=== PATIENT | male | born 1965 | race Two or more races ===

== ENCOUNTER 2021-08-19 01:42 | Inpatient (IN) | payer MEDICAID, OTHER ==
[2021-08-19] VITALS (11 sets, daily range): BP systolic 86–96; BP diastolic 44–64
[~2021-08-19] VITALS: Ht 182.9 cm; Wt 86.2 kg
[2021-08-19] MEDS ORDERED: OCTREOTIDE 100 MCG/ML VIAL ONE (02:08)
[2021-08-19] MEDS ORDERED: PANTOPRAZOLE 40 MG VIAL ONE ×2 (02:08→09:02)
[2021-08-19] MEDS ORDERED: OCTREOTIDE 50 MCG/ML AMPUL IV ONE (02:30)
[2021-08-19] MEDS ORDERED: PANTOPRAZOLE 40 MG VIAL IV ONE (02:30)
[2021-08-19] MEDS ORDERED: IV NS 0.9% 1,000 ML BAG IV ONE (02:30)
[2021-08-19] MEDS ORDERED: IOHEXOL-300 100 ML VIAL IV ONE (02:31)
[2021-08-19] MEDS ORDERED: CT SWABBABLE VALVE TRANS SET 1 EA INFUS.SET MC ONE (02:32)
[2021-08-19] MEDS ORDERED: IV NS 0.9% 250 ML IV ONE (02:32)
[2021-08-19] MEDS ORDERED: POTA20TA83 PO (02:46)
[2021-08-19] MEDS ORDERED: ASCO500C18 PO (02:46)
[2021-08-19] MEDS ORDERED: FOLI5VIA2 PO (02:46)
[2021-08-19] MEDS ORDERED: PANT40TA49 PO (02:46)
[2021-08-19] MEDS ORDERED: SUCR1TAB PO (02:46)
[2021-08-19] MEDS ORDERED: MAGN400T8 PO (02:46)
[2021-08-19] MEDS ORDERED: FERR325T24 PO (02:46)
[2021-08-19] MEDS ORDERED: FURO-144 PO (02:46)
[2021-08-19] MEDS ORDERED: SPIR50TA PO (02:46)
[2021-08-19 03:19] LABS: BASOPHILS # (AUTO) 0.1 K/uL (0.0-0.2); BASOPHILS % (AUTO) 0.7 % (0.0-2.0); EOSINOPHILS % (AUTO) 0.9 % (0.0-6.0); LYMPHOCYTES # (AUTO) 0.7 K/uL (0.8-4.8); LYMPHOCYTES % (AUTO) 9.7 % (20.0-44.0); MEAN CORPUSCULAR HGB CONC 34 g/dl (31.0-36.0); MEAN CORPUSCULAR VOLUME 90 fL (80-96); MONOCYTES # (AUTO) 0.9 K/uL (0.1-1.30); MONOCYTES % (AUTO) 11.8 % (2.0-12.0); NEUTROPHILS # (AUTO) 5.6 K/uL (1.8-8.9); NEUTROPHILS % (AUTO) 76.9 % (43.0-81.0); PLATELET COUNT (AUTO) 140 K/uL (150-450); RED BLOOD CELL COUNT(AUTO) 2.12 MIL/uL (4.5-6.0); WHITE BLOOD COUNT (AUTO) 7.3 K/uL (4.3-11.0)
[2021-08-19 03:36] LABS: CALCIUM, SERUM 7.7 mg/dL (8.5-10.1); CARBON DIOXIDE 26 mmol/L (21-32); CHLORIDE 105 mmol/L (98-107); CREATININE 1.2 mg/dL (0.6-1.3); GLUCOSE 132 mg/dL (74-106); POTASSIUM 3.5 mmol/L (3.5-5.1); SODIUM SERUM 139 mmol/L (136-145); UREA NITROGEN, BLOOD 23 mg/dL (7-18)
[2021-08-19 03:39] LABS: HEMATOCRIT 19 % (39-51); HEMOGLOBIN 6.5 g/dL (13.5-17.5)
[2021-08-19 03:45] LABS: ALANINE AMINOTRANSFERASE 10 U/L (12-78); ALBUMIN 2.3 g/dL (3.4-5.0); ALKALINE PHOSPHATASE 63 U/L (46-116); ASPARTATE AMINOTRANSFERASE 23 U/L (15-37); BILIRUBIN,DIRECT 0.7 mg/dL (0.0-0.2); BILIRUBIN,TOTAL 1.3 mg/dL (0.2-1.0); LIPASE 213 U/L (73-393); TOTAL PROTEIN, SERUM 5.9 g/dL (6.4-8.2)
[2021-08-19 03:47] LABS: BAND % (MANUAL) 2 % (0.0-5.0); EOSINOPHILS % (MANUAL) 1 % (0-4); LYMPHOCYTES % (MANUAL) 12 % (16-48); MONOCYTES % (MANUAL) 8 % (0-11.0); NEUTROPHILS % (MANUAL) 85 (42-76)
[2021-08-19 04:37] LABS: BILIRUBIN,URINE NEGATIVE (NEGATIVE); COLOR,URINE YELLOW (YELLOW); LEUKOCYTE ESTERASE ,URINE NEGATIVE (NEGATIVE); NITRITE, URINE NEGATIVE (NEGATIVE); PROTEIN,URINE NEGATIVE (NEGATIVE); UGLUCOSE NEGATIVE (NEGATIVE)
[2021-08-19] MEDS ORDERED: ZOLPIDEM TARTRATE 5 MG TABLET PO PRN (05:30)
[2021-08-19] MEDS ORDERED: MAGNESIUM HYDROXIDE 30 ML UDC PO PRN (05:30)
[2021-08-19] MEDS ORDERED: ACETAMINOPHEN 325 MG TABLET PO PRN (05:30)
[2021-08-19] MEDS ORDERED: MAG HYDROX/AL HYDROX/SIMETH 30 ML UDC PO PRN (05:30)
[2021-08-19] MEDS ORDERED: ONDANSETRON HCL/PF 4 MG/2 ML VIAL IVP PRN (05:30)
[2021-08-19] MEDS ORDERED: Z GUARD REMEDY 4 OZ OINT TP PRN (05:30)
[2021-08-19] MEDS ORDERED: OCTREOTIDE 500 MCG in IV NS 0.9% 99 ML IV PRN (05:30)
[2021-08-19] MEDS ORDERED: CEFTRIAXONE 1GM BAG (ER ONLY) 50 ML IV ONE (06:19)
[2021-08-19] MEDS: IV NS 0.9% 1,000 ML IV PRN (06:40)
[2021-08-19] MEDS: CEFTRIAXONE 1 G in IV D5W 50 ML IV SCH (06:40)
[2021-08-19 06:59] LABS: HEMOGLOBIN 6.1 g/dL (13.5-17.5)
[2021-08-19] MEDS ORDERED: SPIRONOLACTONE 50 MG TABLET PO SCH (09:00)
[2021-08-19] MEDS ORDERED: PANTOPRAZOLE 40 MG VIAL IV SCH (09:00)
[2021-08-19] MEDS ORDERED: FERROUS SULFATE (325 MG) 325 MG/TAB TABLET ONE (09:02)
[2021-08-19] MEDS ORDERED: FUROSEMIDE 40 MG TABLET ONE (09:03)
[2021-08-19] MEDS ORDERED: MAGNESIUM OXIDE 400 MG TABLET ONE (09:03)
[2021-08-19] MEDS ORDERED: ASCORBIC ACID 500 MG TABLET ONE (09:03)
[2021-08-19] MEDS ORDERED: POTASSIUM CHLORIDE 20 MEQ TAB.PRT.SR PO ONE (09:04)
[2021-08-19] MEDS ORDERED: SUCRALFATE 1 G TABLET ONE (09:04)
[2021-08-19] MEDS ORDERED: SPIRONOLACTONE 25 MG TABLET ONE (09:04)
[2021-08-19] MEDS: SUCRALFATE 1 G TABLET PO SCH ×4 (09:14→20:17)
[2021-08-19] MEDS: POTASSIUM CHLORIDE 20 MEQ TAB.PRT.SR PO SCH (09:14)
[2021-08-19] MEDS: MAGNESIUM OXIDE 400 MG TABLET PO SCH ×2 (09:14→19:18)
[2021-08-19] MEDS: FERROUS SULFATE (325 MG) 325 MG/TAB TABLET PO SCH ×2 (09:14→19:18)
[2021-08-19] MEDS: ASCORBIC ACID 500 MG TABLET PO SCH (09:14)
[2021-08-19] MEDS: FUROSEMIDE 40 MG TABLET PO SCH (09:14)
[2021-08-19] MEDS ORDERED: ANESTHESIA TRAY IN PYXIS 1 EA TRAY MC ONE (11:21)
[2021-08-19] MEDS ORDERED: MIDAZOLAM HCL 2 MG/2ML VIAL ONE (17:52)
[2021-08-19] MEDS: PANTOPRAZOLE 40 MG VIAL IV SCH (20:07)
[2021-08-20] VITALS (12 sets, daily range): BP systolic 89–115; BP diastolic 49–70
[2021-08-20 00:48] LABS: HEMOGLOBIN 6.4 g/dL (13.5-17.5)
[2021-08-20] MEDS: CEFTRIAXONE 1 G in IV D5W 50 ML IV SCH (05:38)
[2021-08-20 06:18] LABS: ALBUMIN 2.5 g/dL (3.4-5.0); BILIRUBIN,TOTAL 1.6 mg/dL (0.2-1.0); CREATININE 1.2 mg/dL (0.6-1.3); MAGNESIUM 2.1 mg/dL (1.8-2.4); PHOSPHORUS 3.6 mg/dL (2.5-4.9); POTASSIUM 3.6 mmol/L (3.5-5.1); TOTAL PROTEIN, SERUM 6.1 g/dL (6.4-8.2)
[2021-08-20 06:19] LABS: BASOPHILS % (AUTO) 1.3 % (0.0-2.0); EOSINOPHILS % (AUTO) 3.4 % (0.0-6.0); LYMPHOCYTES # (AUTO) 1.2 K/uL (0.8-4.8); MEAN CORPUSCULAR HGB CONC 35 g/dl (31.0-36.0); MEAN CORPUSCULAR VOLUME 92 fL (80-96); MONOCYTES # (AUTO) 0.3 K/uL (0.1-1.30); MONOCYTES % (AUTO) 8.5 % (2.0-12.0); NEUTROPHILS % (AUTO) 54.8 % (43.0-81.0); PLATELET COUNT (AUTO) 131 K/uL (150-450); WHITE BLOOD COUNT (AUTO) 3.6 K/uL (4.3-11.0)
[2021-08-20 06:35] LABS: HEMATOCRIT 20 % (39-51)
[2021-08-20] MEDS: OCTREOTIDE 1,250 MCG in IV NS 0.9% 247.5 ML IV PRN ×2 (07:09→15:34)
[2021-08-20] MEDS: PANTOPRAZOLE 40 MG VIAL IV SCH ×2 (09:08→21:04)
[2021-08-20] MEDS: FERROUS SULFATE (325 MG) 325 MG/TAB TABLET PO SCH ×2 (09:08→16:59)
[2021-08-20] MEDS: POTASSIUM CHLORIDE 20 MEQ TAB.PRT.SR PO SCH (09:09)
[2021-08-20] MEDS: ASCORBIC ACID 500 MG TABLET PO SCH (09:09)
[2021-08-20] MEDS: SPIRONOLACTONE 25 MG TABLET PO SCH (09:09)
[2021-08-20] MEDS: FUROSEMIDE 40 MG TABLET PO SCH (09:09)
[2021-08-20] MEDS: SUCRALFATE 1 G TABLET PO SCH ×4 (09:09→21:04)
[2021-08-20] MEDS: MAGNESIUM OXIDE 400 MG TABLET PO SCH ×2 (09:09→16:59)
[2021-08-20] MEDS ORDERED: diphenhydrAMINE HCL ELIX 25 MG/10 ML UDC PO PRN (12:00)
[2021-08-20] MEDS: IV NS 0.9% 1,000 ML IV PRN (15:20)
[2021-08-21] VITALS: BP 111/63
[2021-08-21 00:17] LABS: HEMOGLOBIN 7.9 g/dL (13.5-17.5)
[2021-08-21 04:00] VITALS: BP 93/50
[2021-08-21] MEDS: IV NS 0.9% 1,000 ML IV PRN (04:31)
[2021-08-21] MEDS: CEFTRIAXONE 1 G in IV D5W 50 ML IV SCH (05:18)
[2021-08-21 06:47] LABS: BASOPHILS % (AUTO) 1.3 % (0.0-2.0); EOSINOPHILS % (AUTO) 4.8 % (0.0-6.0); HEMATOCRIT 22 % (39-51); HEMOGLOBIN 7.5 g/dL (13.5-17.5); LYMPHOCYTES % (AUTO) 29.1 % (20.0-44.0); MEAN CORPUSCULAR HGB CONC 34 g/dl (31.0-36.0); MEAN CORPUSCULAR VOLUME 92 fL (80-96); MONOCYTES # (AUTO) 0.3 K/uL (0.1-1.30); MONOCYTES % (AUTO) 7.6 % (2.0-12.0); NEUTROPHILS % (AUTO) 57.2 % (43.0-81.0); PLATELET COUNT (AUTO) 140 K/uL (150-450); RED BLOOD CELL COUNT(AUTO) 2.38 MIL/uL (4.5-6.0); WHITE BLOOD COUNT (AUTO) 3.5 K/uL (4.3-11.0)
[2021-08-21 06:50] LABS: CALCIUM, SERUM 8.3 mg/dL (8.5-10.1); PHOSPHORUS 4.3 mg/dL (2.5-4.9); POTASSIUM 3.6 mmol/L (3.5-5.1)
[2021-08-21 08:00] VITALS: BP 114/47
[2021-08-21] MEDS: MAGNESIUM OXIDE 400 MG TABLET PO SCH (08:44)
[2021-08-21] MEDS: SUCRALFATE 1 G TABLET PO SCH ×2 (08:44→12:06)
[2021-08-21] MEDS: POTASSIUM CHLORIDE 20 MEQ TAB.PRT.SR PO SCH (08:44)
[2021-08-21] MEDS: FUROSEMIDE 40 MG TABLET PO SCH (08:44)
[2021-08-21] MEDS: ASCORBIC ACID 500 MG TABLET PO SCH (08:44)
[2021-08-21] MEDS: PANTOPRAZOLE 40 MG VIAL IV SCH (08:44)
[2021-08-21] MEDS: FERROUS SULFATE (325 MG) 325 MG/TAB TABLET PO SCH (08:44)
[2021-08-21] MEDS: SPIRONOLACTONE 25 MG TABLET PO SCH (08:44)
[2021-08-21 12:00] VITALS: BP 130/78
== END 2021-08-21 15:15 | disposition home or self-care (01) | DRG 810 ==
LOC: ER 01:43 → TRANSITION 05:51 → TELE-TD 10:28 → TELE1 08-20 12:08
PROVIDERS: ADMIT Student in an Organized Health Care Education/Training Program; ATTEND Student in an Organized Health Care Education/Training Program
PROC: 0DJ08ZZ Inspection of Upper Intestinal Tract, Via Natural or Artificial Opening Endoscopic (ICD-10-PCS; principal; 2021-08-19)
PROC: 30233N1 Transfusion of Nonautologous Red Blood Cells into Peripheral Vein, Percutaneous Approach (ICD-10-PCS; 2021-08-19)
PROC: 30233K1 Transfusion of Nonautologous Frozen Plasma into Peripheral Vein, Percutaneous Approach (ICD-10-PCS; 2021-08-19)
DX: K91.840 Postprocedural hemorrhage of a digestive system organ or structure following a digestive system procedure (principal); K22.11 Ulcer of esophagus with bleeding; E44.0 Moderate protein-calorie malnutrition; K74.60 Unspecified cirrhosis of liver; I10 Essential (primary) hypertension; Z20.822 Contact with and (suspected) exposure to COVID-19; E86.0 Dehydration; K29.70 Gastritis, unspecified, without bleeding; E88.09 Other disorders of plasma-protein metabolism, not elsewhere classified; Z79.899 Other long term (current) drug therapy; Z87.891 Personal history of nicotine dependence; R79.89 Other specified abnormal findings of blood chemistry; Z98.890 Other specified postprocedural states; Y83.8 Other surgical procedures as the cause of abnormal reaction of the patient, or of later complication, without mention of misadventure at the time of the procedure; Y82.8 Other medical devices associated with adverse incidents; Y92.9 Unspecified place or not applicable; D62 Acute posthemorrhagic anemia
CPT/HCPCS: 36415; 80048-TC; 80053-TC; 80076-TC; 82140-TC; 83605-TC; 83690-TC; 83735-TC; 84100-TC; 84484-TC; 85025-TC; 85027-TC; 85730-TC; 86850-TC; 87081-TC; 87086-TC; A4217; C9113; C9803; G0378; J0330; J0696; J2250; J2354; J2405; J2704; J3490; J7030; J7050; J7060; P9016; P9017; Q0163; Q9967